=== PATIENT | male | born 1965 | race Caucasian/White ===

== ENCOUNTER → 2019-01-18 10:30 | Outpatient (CLI) | payer MEDICAID, SELFPAY ==
--- NOTE | 2019-01-18 | DI.RAD.S_ITS ---
PROCEDURE: XR SHOULDER LT MIN 2V INDICATIONS: SHOULDER PAIN, BILAT TECHNIQUE: 3 views of the shoulder were acquired. COMPARISON: None. FINDINGS: Bones: No fractures or dislocations. No suspicious bony lesions. There is mild acromioclavicular joint degeneration. Visualized ribs appear intact. Soft tissues: Calcifications over the humeral head are noted, suspicious for calcific tendinitis. IMPRESSION: 1. Mild degenerative joint disease. 2. Suspect rotator cuff calcific tendinitis. Dictated by: Ra Renteria M.D. on 01/18/2019 at 13:39 Approved by: Ra Renteria M.D. on 01/18/2019 at 13:40
--- NOTE | 2019-01-18 | DI.RAD.S_ITS ---
PROCEDURE: XR SHOULDER RT MIN 2V INDICATIONS: SHOULDER PAIN, BILAT TECHNIQUE: 3 views of the shoulder were acquired. COMPARISON: None. FINDINGS: Bones: No fractures or dislocations. No suspicious bony lesions. There is mild acromioclavicular joint generation. Visualized ribs appear intact. Soft tissues: No suspicious soft tissue calcifications. IMPRESSION: Mild degenerative joint disease. Dictated by: Ra Renteria M.D. on 01/18/2019 at 13:13 Approved by: Ra Renteria M.D. on 01/18/2019 at 13:39
== END ==
PROVIDERS: Visit Provider Family Medicine
DX: M25.511 Pain in right shoulder (principal); M25.512 Pain in left shoulder; M19.012 Primary osteoarthritis, left shoulder; M19.011 Primary osteoarthritis, right shoulder
CPT/HCPCS: 73030